=== PATIENT | female | born 1940 | race Caucasian/White ===

== ENCOUNTER 2017-06-27 05:21 | Inpatient (IN) | payer MEDICARE, OTHER ==
[2017-06-19 12:03] LABS: BASOPHILS % (AUTO) 0.5 % (0-1); EOSINOPHILS # (AUTO) 0.1 X10'3 (0-0.9); EOSINOPHILS % (AUTO) 1.3 % (0-6); LYMPHOCYTES % (AUTO) 11.7 % (21-51); MEAN CORPUSCULAR HEMOGLOBIN 30.5 PG (27.0-31.0); MEAN CORPUSCULAR HGB CONC 34.6 % (33.0-36.5); MEAN CORPUSCULAR VOLUME 88.3 FL (78-98); MEAN PLATELET VOLUME 8.7 FL (7.4-10.4); MONOCYTES # (AUTO) 0.6 X10'3 (0-0.9); MONOCYTES % (AUTO) 7.3 % (2-12); NEUTROPHILS # (AUTO) 6.5 X10'3 (1.8-7.7); NEUTROPHILS % (AUTO) 79.2 % (42-75); PRE OP HEMATOCRIT 38.4 % (35.0-45.0); PRE OP HEMOGLOBIN 13.3 g/dL (12.0-16.0); PRE OP PLATELET COUNT 171 X10'3 (140-440); RED BLOOD COUNT 4.36 X10'6 (4.20-5.60); RED CELL DISTRIBUTION WIDTH 13.8 % (11.5-14.5)
[2017-06-19 12:10] LABS: CLARITY,URINE CLOUDY (Clear); COLOR,URINE YELLOW (Yellow); GLUCOSE, URINE NEGATIVE (Neg); KETONES,URINE NEGATIVE (Neg); LEUKOCYTE ESTERASE ,URINE SMALL (Neg); NITRITES, URINE NEGATIVE (Neg); OCCULT BLOOD,URINE NEGATIVE (Neg); PROTEIN,URINE NEGATIVE (Neg); UROBILINOGEN,URINE 0.2 E.U/dL (0.2-1.0)
[2017-06-19 12:14] LABS: PRE OP PROTIME 10.2 SECONDS (9.0-12.0)
[2017-06-19 12:25] LABS: SQUAMOUS EPITHELIAL CELL,UR MANY /LPF (FEW); UA COLLECTION TYPE CLN CATCH MIDSTREAM
[2017-06-19 12:26] LABS: HYALINE CASTS >30 /LPF (NEGATIVE)
[2017-06-19 12:27] LABS: WBC,URINE 20-30 /HPF (0-4)
[2017-06-19 12:28] LABS: BACTERIA,URINE 2+ /HPF (Neg); RBC,URINE 0-2 /HPF (0-2)
[2017-06-19 12:28] LABS: ALBUMIN 2.9 G/DL (3.4-5.0); ALBUMIN/GLOBULIN RATIO 0.6 (1.1-1.5); ALKALINE PHOSPHATASE 56 IU/L (46-116); BLOOD UREA NITROGEN 21 MG/DL (7-18); BUN/CREATININE RATIO 20.4 (6.6-38.0); CALCIUM 9.4 MG/DL (8.5-10.1); CHLORIDE 107 MMOL/L (99-107); CREATININE 1.03 MG/DL (0.40-0.90); PRE OP ALT 27 U/L (30-65); PRE OP ANION GAP 9 (8-16); PRE OP AST 20 U/L (10-37); PRE OP BILIRUB, TOTAL 0.6 MG/DL (0.0-1.0); PRE OP GLUCOSE 103 MG/DL (70-104); PRE OP SODIUM 144 MMOL/L (135-145); TOTAL CARBON DIOXIDE 27.7 MMOL/L (24-32); TOTAL PROTEIN 7.5 G/DL (6.4-8.2); eGFR 52 ML/MIN
[~2017-06-27] VITALS: Ht 167.6 cm; Wt 82.6 kg
[2017-06-27] VITALS (18 sets, daily range): BP systolic 90–156; BP diastolic 45–83
[~2017-06-27 05:21] MED LIST: BIOT0.5P; CELE100C98 PO; LEVO88TA7 PO; MELA3TAB PO; METO-395 PO; OMEP-50 PO; ROSU5TAB18 PO; SERT50TA10 PO; [UNRECOGNIZED DRUG - CODE] PO; ringers solution, lacted 1,000 ML IV SCH
[2017-06-27] MEDS ORDERED: tranexamic acid inj. 1,000 MG in normal saline 100ml IV soln 90 ML IV ONE (05:30)
[2017-06-27] MEDS ORDERED: acetaminophen 325mg tablet PO ONE (05:30)
[2017-06-27] MEDS ORDERED: oxyCODONE SR 10mg (sust. release) tab PO ONE (05:30)
[2017-06-27] MEDS ORDERED: gabapentin 300mg capsule PO ONE (05:30)
[2017-06-27] MEDS ORDERED: vancomycin inj 1,500 MG in normal saline 300ml IV soln IV ONE (05:30)
[2017-06-27] MEDS ORDERED: famotidine 20mg tablet PO ONE (05:30)
[2017-06-27] MEDS ORDERED: clindamycin-Cleocin 900mg/D5W 50 ML IV ONE (05:30)
[2017-06-27] MEDS ORDERED: DOCUMENT DATE & TIME OF BETA-BLOCKER PO ONE (05:30)
[2017-06-27] MEDS ORDERED: celeCOXIB 100mg capsule PO ONE (05:30)
[2017-06-27] MEDS ORDERED: metoclopramide 5 mg/ml inj IV ONE (05:30)
[2017-06-27] MEDS ORDERED: LIDOcaine 1% (10mg/ml) 2ml vial ONE (05:40)
[2017-06-27] MEDS ORDERED: epiNEPHrine 1 mg/ml inj ONE (06:53)
[2017-06-27] MEDS ORDERED: ROPIVAcaine 0.5% (5mg/ml) 30ml vial ONE ×2 (06:53→08:36)
[2017-06-27] MEDS ORDERED: vancomycin 1,000mg inj ONE (06:53)
[2017-06-27] MEDS ORDERED: cloNIDine hcl/PF 100mcg/ml inj ONE ×2 (06:53→07:14)
[2017-06-27] MEDS ORDERED: ketorolac trometh. 30mg/ml inj. ONE (06:53)
[2017-06-27] MEDS ORDERED: BUPIVAcaine/dex-water/PF 7.5 mg/ml 2ml ampul ONE (07:15)
[2017-06-27] MEDS ORDERED: morphine /PF 1mg/ml 10ml inj. ONE (07:21)
[2017-06-27] MEDS ORDERED: MIDAZolam 1mg/ml 10ml vial ONE (07:21)
[2017-06-27] MEDS ORDERED: propofol inj 20 ML IV ONE ×2 (07:39→07:50)
[2017-06-27] MEDS ORDERED: ePHEDrine 50MG/ML INJ. ONE (07:51)
[2017-06-27] MEDS ORDERED: naloxone 2mg/2ml inj 1.6 MG in normal saline 500ml IV soln 500 ML IV PRN (08:09)
[2017-06-27] MEDS ORDERED: ringers solution, lacted 1,000 ML IV SCH (08:09)
[2017-06-27] MEDS ORDERED: proCHLORperazine 10 MG/2 ml inj IV PRN (08:10)
[2017-06-27] MEDS ORDERED: HYDROmorphone inj. 0.5 MG/0.5 ML DISP.SYRIN IV PRN ×2 (08:10)
[2017-06-27] MEDS ORDERED: meperidine/PF 50mg/ml syringe IV PRN (08:10)
[2017-06-27] MEDS ORDERED: ondansetron/PF 4mg/2ml inj IV PRN ×3 (08:10→13:10)
[2017-06-27] MEDS ORDERED: morphine 4 MG/ML inj SYRINge IV PRN ×2 (08:10)
[2017-06-27] MEDS ORDERED: diphenhydrAMINE 50 mg/ml inj IV PRN (08:10)
[2017-06-27] MEDS ORDERED: oxyCODONE/APAP 5-325mg tablet PO PRN (13:10)
[2017-06-27] MEDS ORDERED: magnesium hydroxide 30ml (MOM) UD suspension PO PRN (13:10)
[2017-06-27] MEDS ORDERED: diphenhydrAMINE 25mg capsule PO PRN ×2 (13:10)
[2017-06-27] MEDS ORDERED: bisacodyl 10mg suppository rectal RC PRN (13:10)
[2017-06-27] MEDS ORDERED: acetaminophen 325mg tablet PO PRN (13:10)
[2017-06-27] MEDS ORDERED: Melatonin 3mg tablet PO PRN (13:15)
[2017-06-27] MEDS: potassium cl 20mEq in 1/2 NS 1,000 ML IV SCH ×2 (14:26→20:25)
[2017-06-27] MEDS: oxyCODONE/APAP 5-325mg tablet PO SCH ×2 (14:26→20:24)
[2017-06-27] MEDS: clindamycin-Cleocin 900mg/D5W 50 ML IV SCH (17:11)
[2017-06-27] MEDS: gabapentin 300mg capsule PO SCH (20:24)
[2017-06-27] MEDS: sertraline 50mg tablet PO SCH (20:24)
[2017-06-27] MEDS: psyllium seed 3.4 gm packet PO SCH (20:47)
[2017-06-28] MEDS: clindamycin-Cleocin 900mg/D5W 50 ML IV SCH ×2 (00:37→07:07)
[2017-06-28] MEDS: potassium cl 20mEq in 1/2 NS 1,000 ML IV SCH ×3 (00:41→20:25)
[2017-06-28 02:00] VITALS: BP 137/57
[2017-06-28] MEDS: oxyCODONE/APAP 5-325mg tablet PO SCH ×6 (04:50→20:14)
[2017-06-28 05:00] VITALS: BP 124/58
[2017-06-28 06:46] LABS: BASOPHILS % (AUTO) 0 % (0-1); EOSINOPHILS # (AUTO) 0.2 X10'3 (0-0.9); EOSINOPHILS % (AUTO) 1.7 % (0-6); HEMATOCRIT 31.8 % (35.0-45.0); HEMOGLOBIN 10.9 g/dl (12.0-16.0); LYMPHOCYTES # (AUTO) 0.4 X10'3 (1.1-4.8); LYMPHOCYTES % (AUTO) 4.4 % (21-51); MEAN CORPUSCULAR HEMOGLOBIN 30.1 PG (27.0-31.0); MEAN CORPUSCULAR HGB CONC 34.2 % (33.0-36.5); MEAN PLATELET VOLUME 8.1 FL (7.4-10.4); MONOCYTES # (AUTO) 0.7 X10'3 (0-0.9); MONOCYTES % (AUTO) 7.2 % (2-12); NEUTROPHILS # (AUTO) 8.5 X10'3 (1.8-7.7); NEUTROPHILS % (AUTO) 86.7 % (42-75); PLATELET COUNT 153 X10'3 (140-440); RED BLOOD COUNT 3.61 X10'6 (4.20-5.60); RED CELL DISTRIBUTION WIDTH 13.5 % (11.5-14.5); WHITE BLOOD COUNT 9.8 X10'3 (4.5-11.0)
[2017-06-28 06:59] LABS: ANION GAP 10 (8-16); CHLORIDE 104 MMOL/L (99-107); POTASSIUM 4.9 MMOL/L (3.5-5.1); SODIUM 139 MMOL/L (135-145); TOTAL CARBON DIOXIDE 25.5 MMOL/L (24-32)
[2017-06-28] MEDS: digoxin 125mcg (0.125mg) tablet PO SCH ×2 (07:00→07:10)
[2017-06-28] MEDS: pantoprazole 40mg Tablet.DR PO SCH (07:07)
[2017-06-28] MEDS: gabapentin 300mg capsule PO SCH ×3 (07:07→20:14)
[2017-06-28] MEDS: atorvastatin 20mg tablet PO SCH (07:07)
[2017-06-28] MEDS: metoprolol succinate 25mg (24-HOUR) SR. Tablet PO SCH (07:08)
[2017-06-28] MEDS: sertraline 50mg tablet PO SCH ×2 (07:08→20:14)
[2017-06-28] MEDS: levoTHYROXINE 88mcg tablet PO SCH (07:08)
[2017-06-28] MEDS: aspirin 325mg tablet PO SCH (08:12)
[2017-06-28 10:00] VITALS: BP 98/40
[2017-06-28] MEDS ORDERED: diazepam 5mg tablet PO ONE ×2 (11:40→12:50)
[2017-06-28 18:00] VITALS: BP 113/42
[2017-06-28] MEDS: psyllium seed 3.4 gm packet PO SCH (20:14)
[2017-06-28 22:00] VITALS: BP 104/31
[2017-06-29] MEDS: oxyCODONE/APAP 5-325mg tablet PO SCH ×6 (01:13→20:49)
[2017-06-29] MEDS: potassium cl 20mEq in 1/2 NS 1,000 ML IV SCH (01:14)
[2017-06-29 05:00] VITALS: BP 113/47
[2017-06-29] MEDS: digoxin 125mcg (0.125mg) tablet PO SCH (07:00)
[2017-06-29] MEDS: metoprolol succinate 25mg (24-HOUR) SR. Tablet PO SCH (08:00)
[2017-06-29] MEDS: sertraline 50mg tablet PO SCH ×2 (08:55→20:49)
[2017-06-29] MEDS: aspirin 325mg tablet PO SCH (08:55)
[2017-06-29] MEDS: pantoprazole 40mg Tablet.DR PO SCH (08:55)
[2017-06-29] MEDS: levoTHYROXINE 88mcg tablet PO SCH (08:55)
[2017-06-29] MEDS: gabapentin 300mg capsule PO SCH ×3 (08:55→20:49)
[2017-06-29] MEDS: atorvastatin 20mg tablet PO SCH (08:56)
[2017-06-29 10:00] VITALS: BP 118/48
[2017-06-29 17:00] VITALS: BP 120/61
[2017-06-29] MEDS: psyllium seed 3.4 gm packet PO SCH (20:54)
[2017-06-29 22:00] VITALS: BP_SYST 120; BP_SYST 140; BP_DIAS 53; BP_DIAS 86
[2017-06-30] MEDS: oxyCODONE/APAP 5-325mg tablet PO SCH ×4 (00:56→12:37)
[2017-06-30 05:00] VITALS: BP 133/51
[2017-06-30] MEDS: levoTHYROXINE 88mcg tablet PO SCH (07:29)
[2017-06-30] MEDS: aspirin 325mg tablet PO SCH (07:29)
[2017-06-30] MEDS: digoxin 125mcg (0.125mg) tablet PO SCH (07:30)
[2017-06-30] MEDS: atorvastatin 20mg tablet PO SCH (07:30)
[2017-06-30] MEDS: gabapentin 300mg capsule PO SCH ×2 (07:30→12:38)
[2017-06-30] MEDS: sertraline 50mg tablet PO SCH (07:30)
[2017-06-30] MEDS: metoprolol succinate 25mg (24-HOUR) SR. Tablet PO SCH (07:30)
[2017-06-30] MEDS: pantoprazole 40mg Tablet.DR PO SCH (07:30)
[2017-06-30 07:52] LABS: BASOPHILS % (AUTO) 0.4 % (0-1); EOSINOPHILS # (AUTO) 0.2 X10'3 (0-0.9); EOSINOPHILS % (AUTO) 2.3 % (0-6); HEMATOCRIT 33.7 % (35.0-45.0); HEMOGLOBIN 11.4 g/dl (12.0-16.0); LYMPHOCYTES # (AUTO) 0.6 X10'3 (1.1-4.8); LYMPHOCYTES % (AUTO) 7.8 % (21-51); MEAN CORPUSCULAR HEMOGLOBIN 30.2 PG (27.0-31.0); MEAN CORPUSCULAR HGB CONC 33.9 % (33.0-36.5); MEAN CORPUSCULAR VOLUME 89.1 FL (78-98); MEAN PLATELET VOLUME 8.6 FL (7.4-10.4); MONOCYTES # (AUTO) 0.8 X10'3 (0-0.9); NEUTROPHILS # (AUTO) 6.1 X10'3 (1.8-7.7); NEUTROPHILS % (AUTO) 79.5 % (42-75); PLATELET COUNT 167 X10'3 (140-440); RED BLOOD COUNT 3.79 X10'6 (4.20-5.60); RED CELL DISTRIBUTION WIDTH 14.2 % (11.5-14.5); WHITE BLOOD COUNT 7.7 X10'3 (4.5-11.0)
[2017-06-30 08:04] LABS: ALBUMIN 2.9 G/DL (3.4-5.0); ANION GAP 11 (8-16); BLOOD UREA NITROGEN 17 MG/DL (7-18); BUN/CREATININE RATIO 15.6 (6.6-38.0); CALCIUM 9.1 MG/DL (8.5-10.1); CHLORIDE 105 MMOL/L (99-107); CREATININE 1.09 MG/DL (0.40-0.90); GLUCOSE 104 MG/DL (70-104); POTASSIUM 4.2 MMOL/L (3.5-5.1); SODIUM 141 MMOL/L (135-145); TOTAL CARBON DIOXIDE 25.3 MMOL/L (24-32); eGFR 49 ML/MIN
[2017-06-30 10:00] VITALS: BP 107/52
== END 2017-06-30 14:19 | disposition home or self-care (01) | DRG 470 ==
LOC: PAS IN 05:21 → EDSTATUS 07:30 → ORTHO 4S 11:45
PROVIDERS: ADMIT Orthopaedic Surgery; ATTEND Orthopaedic Surgery
PROC: 0SRD0J9 Replacement of Left Knee Joint with Synthetic Substitute, Cemented, Open Approach (ICD-10-PCS; principal; 2017-06-27 07:18)
DX: M17.12 Unilateral primary osteoarthritis, left knee (principal); I48.91 Unspecified atrial fibrillation; D62 Acute posthemorrhagic anemia; E03.9 Hypothyroidism, unspecified; E78.5 Hyperlipidemia, unspecified; F32.9 Major depressive disorder, single episode, unspecified; Z88.0 Allergy status to penicillin; Z79.899 Other long term (current) drug therapy; Z79.82 Long term (current) use of aspirin; Z87.891 Personal history of nicotine dependence
CPT/HCPCS: 36415; 70544; 70551; 71046; 73560; 80048; 80051; 80053; 81001; 85025; 85610; 85730; 86885; 86900; 86901; 87070; 93005; 97110; 97116; 97162; 97530; 97535; A6449; A6455; A7000; C1713; C1758; C1776; J0171; J0735; J1885; J2250; J2274; J2310; J2704; J2765; J2795; J3370; J3490; J7030; J7120; Q0163